=== PATIENT | male | born 1995 | race Caucasian/White ===

== ENCOUNTER 2017-02-27 20:22 | Emergency (ER) | payer OTHER ==
[2017-02-27] MEDS ORDERED: Acetaminophen 500 MG TAB ONE (21:13)
== END 2017-02-27 21:31 | disposition home or self-care (01) ==
LOC: ERS 20:22
DX: J11.1 Influenza due to unidentified influenza virus with other respiratory manifestations (principal)
CPT/HCPCS: 87081; 87430; 99283